=== PATIENT | male | born 1970 | race Asian ===

== ENCOUNTER 2016-06-20 21:38 | Inpatient (IN) | payer BC ==
[~2016-06-20] VITALS: Ht 180.3 cm; Wt 99.3 kg
[2016-06-20] MEDS ORDERED: SODIUM CHLORIDE 0.9% 1,000 ML IV ONE (21:54)
[2016-06-20] MEDS ORDERED: SODIUM CHLORIDE FLUSH 10ML SYR IVF ONE (22:00)
[2016-06-20] MEDS ORDERED: LABETALOL 5MG/ML, 20ML IVPush ONE ×2 (22:00→23:30)
[2016-06-20] MEDS ORDERED: NITROGLYCERIN OINT 2%, 1GM TP ONE ×3 (22:00→22:19)
[2016-06-20] MEDS ORDERED: ONDANSETRON 2MG/ML, 2ML IVPush ONE (22:00)
[2016-06-20] MEDS ORDERED: KETOROLAC 30 MG/1 ML IVPush ONE (22:00)
[2016-06-20] MEDS ORDERED: MORPHINE SULFATE 4 MG/ML, 1ML IVPush PRN (22:00)
[2016-06-20] MEDS ORDERED: ASPIRIN 81 MG TABLET CHEW PO ONE (22:00)
[2016-06-20] MEDS ORDERED: MORPHINE SULFATE 4 MG/ML, 1ML ONE (22:18)
[2016-06-20] MEDS ORDERED: ONDANSETRON 2MG/ML, 2ML ONE (22:18)
[2016-06-20] MEDS ORDERED: KETOROLAC 30 MG/1 ML ONE (22:18)
[2016-06-20 23:01] LABS: ASPARTATE AMINO TRANSFERASE 25 U/L (15-37); BLOOD UREA NITROGEN 11 mg/dL (7-18)
[2016-06-20 23:08] LABS: IS PT STATUS REG ER OR PRE ER? YES
[2016-06-20] MEDS ORDERED: ASPIRIN 325 MG TABLET ONE (23:23)
[2016-06-20] MEDS ORDERED: ASPIRIN 325 MG TABLET PO ONE (23:30)
[2016-06-20] MEDS ORDERED: LABETALOL 5MG/ML, 20ML ONE (23:33)
[2016-06-21] MEDS ORDERED: OMNIPAQUE 350 MG/ML, 100ML BOTTLE ONE (00:32)
[2016-06-21] MEDS ORDERED: NS + 20MEQ KCL 1,000 ML IV SCH (01:25)
[2016-06-21] MEDS ORDERED: HEPARIN 5,000 UNITS/ML, 1ML IV ONE (01:30)
[2016-06-21] MEDS ORDERED: POLYETHYLENE GLYCOL 17 GM PACKET PO PRN (01:30)
[2016-06-21] MEDS ORDERED: HEPARIN 5,000 UNITS/ML, 1ML IV PRN (01:30)
[2016-06-21] MEDS ORDERED: ACETAMINOPHEN 325 MG TABLET PO PRN (01:30)
[2016-06-21] MEDS ORDERED: ONDANSETRON 2MG/ML, 2ML IVP PRN (01:30)
[2016-06-21] MEDS ORDERED: DOCUSATE 100 MG CAPSULE PO PRN (01:30)
[2016-06-21] MEDS ORDERED: MORPHINE SULFATE 4 MG/ML, 1ML IVPush PRN (01:30)
[2016-06-21] MEDS ORDERED: HYDROcodone/APAP 5/325 TABLET PO PRN (01:30)
[2016-06-21] MEDS ORDERED: HEPARIN 5,000 UNITS/ML, 1ML ONE (01:37)
[2016-06-21] MEDS ORDERED: HEPARIN 25,000 UNITS/500ML PMX 500 ML ONE (01:37)
[2016-06-21] MEDS: HEPARIN 25,000 UNITS/500ML PMX 500 ML IV PRN ×2 (01:53→03:54)
[2016-06-21 03:39] VITALS: BP 144/91
[2016-06-21 05:47] LABS: IS PT STATUS REG ER OR PRE ER? NO
[2016-06-21] MEDS: ASPIRIN 325 MG TABLET EC PO SCH (06:15)
[2016-06-21 06:55] VITALS: BP 147/97
[2016-06-21] MEDS: SODIUM CHLORIDE 0.9% 1,000 ML IV SCH ×2 (10:16→15:27)
[2016-06-21 10:17] VITALS: BP 151/93
[2016-06-21] MEDS: LISINOPRIL 10 MG TABLET PO SCH (10:17)
[2016-06-21 13:20] VITALS: BP 146/95
[2016-06-21] MEDS ORDERED: FENTANYL PF 100 MCG/2ML ONE (13:42)
[2016-06-21] MEDS ORDERED: TICAGRELOR 90 MG TABLET ONE (13:43)
[2016-06-21] MEDS ORDERED: MIDAZOLAM 1 MG/ML, 5ML ONE (13:43)
[2016-06-21] MEDS ORDERED: LIDOCAINE 2%, 20ML ONE (13:43)
[2016-06-21] MEDS ORDERED: BIVALIRUDIN 250 MG ONE (13:43)
[2016-06-21] MEDS ORDERED: HEPARIN 1,000 UNITS/ML, 10ML ONE (13:43)
[2016-06-21] MEDS ORDERED: VERAPAMIL 2.5 MG/ML, 2ML ONE (13:43)
[2016-06-21 15:06] LABS: DAU SCREEN DISCLAIMER
[2016-06-21 17:32] VITALS: BP 122/81
[2016-06-21] MEDS: METOPROLOL TARTRATE 25 MG TABLET PO SCH (17:33)
[2016-06-21] MEDS ORDERED: METOPROLOL TARTRATE 25 MG TABLET PO SCH (18:00)
[2016-06-21 19:11] VITALS: BP 138/96
[2016-06-21] MEDS ORDERED: ATORVASTATIN 20 MG TABLET PO SCH (21:00)
[2016-06-22 01:34] VITALS: BP 127/81
[2016-06-22] MEDS: ASPIRIN 325 MG TABLET EC PO SCH (05:41)
[2016-06-22] MEDS: METOPROLOL TARTRATE 25 MG TABLET PO SCH (05:41)
[2016-06-22 07:29] VITALS: BP 148/92
[2016-06-22] MEDS: LISINOPRIL 10 MG TABLET PO SCH (08:28)
[2016-06-22] MEDS ORDERED: LISI-167 PO (10:05)
[2016-06-22] MEDS ORDERED: METO25TA35 PO (10:05)
== END 2016-06-22 12:45 | disposition home or self-care (01) | DRG 553 ==
LOC: ED 23:59 → SUATTDRO 06-21 01:16 → EDIP 06-21 01:25 → 5SO 06-21 03:26 → DCLOUNGE 06-22 12:07
PROVIDERS: ADMIT Family Medicine; ATTEND Family Medicine
PROC: 4A023N7 Measurement of Cardiac Sampling and Pressure, Left Heart, Percutaneous Approach (ICD-10-PCS; principal; 2016-06-21)
PROC: B2111ZZ Fluoroscopy of Multiple Coronary Arteries using Low Osmolar Contrast (ICD-10-PCS; 2016-06-21)
PROC: B2151ZZ Fluoroscopy of Left Heart using Low Osmolar Contrast (ICD-10-PCS; 2016-06-21)
DX: M19.012 Primary osteoarthritis, left shoulder (principal); I50.31 Acute diastolic (congestive) heart failure; I16.1 Hypertensive emergency; I42.9 Cardiomyopathy, unspecified; Z83.3 Family history of diabetes mellitus; Z82.49 Family history of ischemic heart disease and other diseases of the circulatory system; Z82.3 Family history of stroke; I11.0 Hypertensive heart disease with heart failure; Z83.6 Family history of other diseases of the respiratory system
CPT/HCPCS: 36415; 71010; 71275; 80053; 80061; 80307; 83880; 84484; 85025; 85520; 85651; 86141; 93005; 93306; 93458; 96374; 96375; C1894; J0583; J1644; J1885; J2250; J2405; J3010; J3480; J3490; Q9967; J7030